=== PATIENT | male | born 1960 | race Hispanic/Latino ===

== ENCOUNTER 2018-12-28 20:48 | Observation (INO) | payer MEDICAID ==
[2018-12-28] MEDS ORDERED: ASPIRIN 325 MG TABLET ONE (21:30)
[2018-12-28 21:36] LABS: BASOPHILS % (AUTO) 0.6 % (0.0-5.0); EOSINOPHILS % (AUTO) 2.4 % (0.0-8.0); HEMATOCRIT 26.6 % (42-54); LYMPHOCYTES % (AUTO) 27.5 % (21.0-51.0); MEAN CORPUSCULAR HEMOGLOBIN 19.2 pg (27.0-33.0); MEAN CORPUSCULAR HGB CONC 30.1 g/dL (32.0-36.0); MEAN CORPUSCULAR VOLUME 63.8 fL (79-99); MONOCYTES % (AUTO) 9.1 % (3.0-13.0); NEUTROPHILS % (AUTO) 60.4 % (40.0-77.0); NUCLEATED RED BLOOD CELLS 0.1 % (0.0-0.19); PLATELET COUNT (AUTO) 308 K/uL (130-400); RED BLOOD CELL COUNT(AUTO) 4.17 MIL/uL (4.50-6.20); RED CELL DISTRIBUTION WIDTH 19.7 % (11.0-15.5); WHITE BLOOD COUNT (AUTO) 4.6 K/uL (4.8-10.8)
[2018-12-28 21:54] LABS: CREATININE 0.9 mg/dL (0.5-1.5); POTASSIUM 3.7 mmol/L (3.5-5.1)
[2018-12-28 21:55] LABS: INR 0.98 (0.85-1.15); PARTIAL THROMBOPLASTIN TIME 25.2 SEC (26.3-35.5); PROTHROMBIN TIME 10.3 SEC (9.6-11.6)
[2018-12-28 21:59] LABS: ALBUMIN 3.7 g/dL (3.5-5.0); BILIRUBIN,TOTAL 0.4 mg/dL (0.2-1.0); TOTAL PROTEIN, SERUM 7.7 g/dL (6.0-8.3)
[2018-12-28 22:17] LABS: B-TYPE NATRIURETIC PEPTIDE 39 pg/mL (0-100)
[2018-12-28] MEDS ORDERED: DiphenhydrAMINE HCL 50 MG/ML VIAL ONE (22:34)
[2018-12-28] MEDS ORDERED: DiphenhydrAMINE HCL 50 MG/ML VIAL IV PRN (23:45)
[2018-12-28] MEDS ORDERED: HYDROXYZINE HCL 10 MG TABLET PO SCH (23:45)
[2018-12-28] MEDS ORDERED: NITROGLYCERIN 0.4 MG SL TAB SL PRN (23:45)
[2018-12-29] MEDS ORDERED: DiphenhydrAMINE HCL 50 MG/ML VIAL IV PRN (01:15)
[2018-12-29] MEDS ORDERED: HYDROXYZINE HCL 10 MG TABLET PO SCH (01:15)
[2018-12-29] MEDS ORDERED: NITROGLYCERIN 0.4 MG SL TAB SL PRN (01:15)
[2018-12-29] MEDS ORDERED: ASPIRIN 81MG TAB.CHEW PO SCH ×2 (09:00)
[2018-12-29] MEDS ORDERED: FAMOTIDINE 20MG TAB 20 MG TAB PO SCH ×2 (09:00)
== END 2018-12-29 01:03 | disposition left against medical advice (07) ==
LOC: EDH 20:48 → EDHIP 20:49 → EDH 12-29 01:05
PROVIDERS: ADMIT Internal Medicine; ATTEND Internal Medicine
DX: R07.89 Other chest pain (principal); T78.40XA Allergy, unspecified, initial encounter; F31.9 Bipolar disorder, unspecified; D64.9 Anemia, unspecified; Z87.891 Personal history of nicotine dependence; X58.XXXA Exposure to other specified factors, initial encounter; Y92.89 Other specified places as the place of occurrence of the external cause; Y93.89 Activity, other specified
CPT/HCPCS: 36415; 71045; 80053; 82550; 83880; 84484; 85025; 85610; 85730; 93005; 99284; G0378; J1200

== ENCOUNTER 2020-02-05 19:22 | Observation (INO) | payer MEDICAID ==
[~2020-02-05] VITALS: Ht 162.6 cm; Wt 65.0 kg
[2020-02-05 19:52] LABS: BASOPHILS % (AUTO) 1.1 % (0.0-5.0); EOSINOPHILS % (AUTO) 1.9 % (0.0-8.0); HEMATOCRIT 29.8 % (42-54); LYMPHOCYTES % (AUTO) 24.2 % (21.0-51.0); MEAN CORPUSCULAR HEMOGLOBIN 23.5 pg (27.0-33.0); MEAN CORPUSCULAR HGB CONC 31.2 g/dL (32.0-36.0); MEAN CORPUSCULAR VOLUME 75.4 fL (79-99); MONOCYTES % (AUTO) 12.8 % (3.0-13.0); NEUTROPHILS % (AUTO) 59.7 % (40.0-77.0); PLATELET COUNT (AUTO) 225 K/uL (130-400); RED BLOOD CELL COUNT(AUTO) 3.95 MIL/uL (4.50-6.20); RED CELL DISTRIBUTION WIDTH 15.7 % (11.0-15.5); WHITE BLOOD COUNT (AUTO) 3.7 K/uL (4.8-10.8)
[2020-02-05 20:02] LABS: CREATININE 0.7 mg/dL (0.5-1.5); POTASSIUM 3.5 mmol/L (3.5-5.1)
[2020-02-05 20:05] LABS: INR 0.99 (0.85-1.15); PROTHROMBIN TIME 10.7 SEC (9.6-11.6)
[2020-02-05 20:16] LABS: BILIRUBIN,TOTAL 0.6 mg/dL (0.2-1.0); TOTAL PROTEIN, SERUM 8.5 g/dL (6.0-8.3)
[2020-02-05] MEDS ORDERED: ACETAMINOPHEN 325 MG TAB PO PRN ×2 (22:45)
[2020-02-05] MEDS ORDERED: LACTATED RINGERS 1000ML 1,000 ML IV SCH (22:45)
[2020-02-05] MEDS ORDERED: DiphenhydrAMINE HCL 50 MG/ML VIAL IV PRN (22:45)
[2020-02-05] MEDS ORDERED: DIPHENHYDRAMINE HCL 25 MG CAPSULE PO PRN (22:45)
[2020-02-05] MEDS ORDERED: ONDANSETRON HCL 4 MG/2 ML VIAL IV PRN (22:45)
[2020-02-05] MEDS ORDERED: KETOROLAC TROMETHAMINE 15MG/ML IV PRN (23:00)
[2020-02-05] MEDS ORDERED: CHLORDIAZEPOXIDE HCL 25 MG CAP PO PRN (23:00)
[2020-02-05] MEDS ORDERED: PHARMACY COMMUNICATION MISC PRN (23:00)
[2020-02-05 23:22] LABS: HEMOGLOBIN A1C 5.8 % (4.0-6.0)
[2020-02-06] MEDS ORDERED: SODIUM CHLORIDE 0.9% 1000ML 1,000 ML IV ONE (00:55)
[2020-02-06 04:48] LABS: BASOPHILS % (AUTO) 1.2 % (0.0-5.0); EOSINOPHILS % (AUTO) 3.2 % (0.0-8.0); HEMATOCRIT 31.1 % (42-54); LYMPHOCYTES % (AUTO) 27.6 % (21.0-51.0); MEAN CORPUSCULAR HEMOGLOBIN 23.8 pg (27.0-33.0); MEAN CORPUSCULAR HGB CONC 30.9 g/dL (32.0-36.0); MONOCYTES % (AUTO) 13.7 % (3.0-13.0); NEUTROPHILS % (AUTO) 54.3 % (40.0-77.0); PLATELET COUNT (AUTO) 233 K/uL (130-400); RED BLOOD CELL COUNT(AUTO) 4.04 MIL/uL (4.50-6.20); WHITE BLOOD COUNT (AUTO) 3.4 K/uL (4.8-10.8)
[2020-02-06 05:01] LABS: % IRON SATURATION 2.3 % (30-44)
[2020-02-06 05:27] LABS: ALBUMIN 3.9 g/dL (3.5-5.0); BILIRUBIN,TOTAL 0.5 mg/dL (0.2-1.0); CREATININE 0.9 mg/dL (0.5-1.5); POTASSIUM 4.1 mmol/L (3.5-5.1); TOTAL PROTEIN, SERUM 8.1 g/dL (6.0-8.3)
[2020-02-06] MEDS ORDERED: Vitamin B Complex/Vit C/Folic Acid ONE (08:48)
[2020-02-06] MEDS ORDERED: FAMOTIDINE 20MG TAB 20 MG TAB ONE (08:48)
[2020-02-06] MEDS ORDERED: THIAMINE HCL 100 MG TABLET ONE (08:49)
[2020-02-06] MEDS ORDERED: MULTIVITAMIN TABLET ONE (08:49)
[2020-02-06] MEDS ORDERED: CHLORDIAZEPOXIDE HCL 25 MG CAP ONE (08:53)
[2020-02-06] MEDS ORDERED: KETOROLAC TROMETHAMINE 15MG/ML ONE (08:56)
[2020-02-06] MEDS ORDERED: THIAMINE HCL 100 MG TABLET PO SCH (09:00)
[2020-02-06] MEDS ORDERED: Vitamin B Complex/Vit C/Folic Acid PO SCH (09:00)
[2020-02-06] MEDS ORDERED: ENOXAPARIN SODIUM 30 MG/0.3 ML SQ SCH (09:00)
[2020-02-06] MEDS: FAMOTIDINE/PF 20 MG/2 ML VIAL IV SCH ×2 (09:00→19:24)
[2020-02-06] MEDS ORDERED: MULTIVITAMIN TABLET PO SCH (09:00)
[2020-02-06 10:30] VITALS: BP 131/69
[2020-02-06] MEDS ORDERED: THIAMINE HCL 100 MG, FOLIC ACID 1 MG, M.V.I. IV [ADULT] 10 ML in SODIUM CHLORIDE 0.9% 1... IV NR (16:00)
[2020-02-06 16:31] VITALS: BP 146/82
[2020-02-06 19:55] VITALS: BP 149/83
[2020-02-06 23:06] VITALS: BP 149/90
[2020-02-07 03:34] VITALS: BP 140/87
[2020-02-07] MEDS ORDERED: KETOROLAC TROMETHAMINE 30MG/ML ONE (05:34)
[2020-02-07 08:23] VITALS: BP 130/97
[2020-02-07 11:28] VITALS: BP 127/82
== END 2020-02-07 13:00 | disposition home or self-care (01) ==
LOC: EDH 19:22 → INTOOBSV 19:23 → EDHIP 19:23 → 4BH 02-06 10:05
PROVIDERS: ADMIT Internal Medicine; ATTEND Internal Medicine
DX: M62.82 Rhabdomyolysis (principal); Z20.828 Contact with and (suspected) exposure to other viral communicable diseases; E87.1 Hypo-osmolality and hyponatremia; K70.30 Alcoholic cirrhosis of liver without ascites; D64.9 Anemia, unspecified; M84.48XA Pathological fracture, other site, initial encounter for fracture; R13.10 Dysphagia, unspecified; R74.8 Abnormal levels of other serum enzymes; F41.9 Anxiety disorder, unspecified; F10.239 Alcohol dependence with withdrawal, unspecified; Z79.899 Other long term (current) drug therapy; Z91.010 Allergy to peanuts; Y90.8 Blood alcohol level of 240 mg/100 ml or more
CPT/HCPCS: 36415 ×3; 71045; 76705; 80053 ×2; 82550 ×3; 82746; 83036; 83540; 83550; 83690; 84425; 84484; 85025 ×2; 85378; 85610; 85730; 87426; 87804 ×2; 93005; 96365; 96366 ×2; 96375; 99285; G0378 ×38; J1885 ×2; J3411; J3490 ×3; J7030 ×2; U0003

== ENCOUNTER 2025-03-04 07:54 | Day surgery (SDC) | payer MEDICAID ==
[2025-03-01 13:17] LABS: IMMATURE GRANULOCYTE ABSOLUTE 0.01 K/uL (0-1); NUCLEATED RED BLOOD CELLS 0.0 % (0.0-0.19); PLATELET COUNT (AUTO) 235 K/uL (130-400); RED BLOOD CELL COUNT(AUTO) 4.39 MIL/uL (4.50-6.20); RED CELL DISTRIBUTION WIDTH 20.8 % (11.0-15.5); WHITE BLOOD COUNT (AUTO) 5.3 K/uL (4.8-10.8)
[2025-03-01 13:18] VITALS: BP 173/94; PULSE 65; RESP 18; TEMP 97.9
[2025-03-01 13:33] LABS: CREATININE 1.0 mg/dL (0.5-1.3); GLOMERULAR FILTR. RATE CALC 84.0 mL/min (>90); GLUCOSE,RANDOM 91.0 mg/dL (70-105); SODIUM SERUM 136.0 mmol/L (136-145); UREA NITROGEN, BLOOD 11.0 mg/dL (7-18)
[2025-03-01 13:39] LABS: INR 0.98 (0.85-1.15)
[~2025-03-04] VITALS: Ht 162.6 cm; Wt 65.0 kg
[~2025-03-04 07:54] MED LIST: LOSA100T59 PO; PHARMACY COMMUNICATION MISC SCH; VITAD50000 PO
[2025-03-04 08:00] VITALS: BP 182/93; PULSE 64; RESP 16; TEMP 98.4
[2025-03-04] MEDS ORDERED: FERR325T29 PO (08:42)
[2025-03-04] MEDS: LACTATED RINGERS 1000ML 1,000 ML IV ONE (08:42)
[2025-03-04] MEDS ORDERED: LIDOCAINE PF 100MG/5ML (2%) SYRINGE 5ML ONE (08:56)
[2025-03-04] MEDS ORDERED: MIDAZOLAM HCL 1 MG/ML 2ML VIAL ONE (08:57)
[2025-03-04] MEDS ORDERED: GLYCOPYRROLATE 0.2 MG/ML 5 ML VIAL ONE (10:16)
[2025-03-04] MEDS ORDERED: NEOSTIGMINE METHYLSULFATE 1MG/ML IV ONE (11:07)
[2025-03-04 11:23] VITALS: BP 131/72; PULSE 60; RESP 14; TEMP 97
--- NOTE | 2025-03-04 11:26 | OP ---
Operative Note: DATE OF PROCEDURE: 03/04/25 SURGEON: THANG DORMAN MD HUNTING AND FISHING GUIDE: [] ANESTHESIA: [] General ANESTHESIOLOGIST/MARINE TOWER OPERATOR: [] PREOPERATIVE DIAGNOSIS: [] Right inguinal hernia POSTOPERATIVE DIAGNOSIS: [] The same SYNOPSIS: [] PROCEDURE: [] Robotic right inguinal hernia repair with mesh ESTIMATED BLOOD LOSS: [] None INDICATIONS: [] DESCRIPTION OF PROCEDURE: [] With the patient prepped in usual fashion and a Irvin catheter placed we inserted the Veress needle in the left upper quadrant abdomen insufflated. Supraumbilical incision was created and a millimeter da Indu trocar was inserted. Under direct vision I remove the needle and I placed 2 da Indu trochars 1 in each the side of the abdomen. Then we placed the patient in Trendelenburg and I docked the robot. The patient had a very large right inguinal scrotal hernia. I went to the console and observe a right inguinal hernia. This seems to be of the indirect type. Using cautery I scored the peritoneum and I brought him down bluntly. I exposed the Ryan's ligament and the indirect area I reduce a large hernia sac preserving the spermatic cords and visualizing the vas deferens and spermatic cords. The hernia was reduced with significant difficulty because of the large size of the sac. I have to amputate the sac preserving all the important structures. After observing the myopectineal line and the Ryan's ligament I placed a 3 D MAX MId mid mesh on the right side. This was a large one. I anchored the mesh in the Ryan's ligament in the abdominal wall. This was done with a silk 2-0. I placed it over the Ryan's ligament covering couple centimeters below and the indirect space. The sac with the lipoma was placed over the mesh. I then closed the peritoneum with a 2 oh V-Loc. We did a closure continues and dropped the pressure to 8 cm. After this was done I remove the needle and I remove all the trochars under direct vision. The skin was closed with 4-0 Monocryl and Dermabond. We placed 20 cc THANG DORMAN MD Mar 04, 2025 11:26
[2025-03-04] MEDS ORDERED: PROMETHAZINE HCL 25 MG/ML 1ML AMPULE IM PRN (12:00)
[2025-03-04 12:30] VITALS: BP 166/84; PULSE 59; RESP 16; TEMP 97.7
--- NOTE | 2025-03-04 12:30 | NUR ---
dressing: dermabond x 4 to abdomen dry/intact with no bleeding present. no redness/swelling noted to surrounding area
[2025-03-04 12:45] VITALS: BP 159/70; PULSE 55; RESP 16
[2025-03-04 13:00] VITALS: BP 170/80; PULSE 59; RESP 16; TEMP 97.5
--- NOTE | 2025-03-04 13:00 | NUR ---
urinary: voided qs yellow color urine in toilet with difficulty.
--- NOTE | 2025-03-04 13:05 | NUR ---
dressing: dermabond x 4 to abdomen dry/intact with no bleeding present. no redness/swelling noted to surrounding area.
== END 2025-03-04 13:05 | disposition home or self-care (01) ==
LOC: DAH 07:54
PROVIDERS: ATTEND Surgery
DX: K40.90 Unilateral inguinal hernia, without obstruction or gangrene, not specified as recurrent (principal); I10 Essential (primary) hypertension; F31.9 Bipolar disorder, unspecified; Z79.899 Other long term (current) drug therapy; Z98.890 Other specified postprocedural states
CPT/HCPCS: 80048; 85025; 85610; 85730; 36415; 49650; J1100; A4223 ×2; A6260; S2900; J7030; A4344; A4215 ×2; J7120; J3010 ×3; J3490 ×3; J0665; J2003; J2250; J2704; J2405; J2710; J0690 ×2; C1781; A4930; A4221; A4663; A4216; A4606